=== PATIENT | male | born 1990 | race Caucasian/White ===

== ENCOUNTER 2018-10-10 13:27 | Emergency (ER) | payer SELFPAY ==
[2018-10-10] MEDS: ONDANSETRON (ODT) 4 MG TAB ODT (14:05)
[2018-10-10] MEDS: ACETAMINOPHEN 325 MG TAB PO (14:05)
[2018-10-10] MEDS: IBUPROFEN 200 MG TAB PO (14:05)
== END 2018-10-10 15:00 | disposition home or self-care (01) ==
LOC: FTE 13:27
DX: S01.81XA Laceration without foreign body of other part of head, initial encounter (principal); W22.8XXA Striking against or struck by other objects, initial encounter; Y92.810 Car as the place of occurrence of the external cause
CPT/HCPCS: 12013; 99283-25

== ENCOUNTER 2018-10-17 09:44 | Emergency (ER) | payer SELFPAY | END 2018-10-17 10:47 | disposition home or self-care (01) | LOC: FTE 09:44 | DX: Z48.02 Encounter for removal of sutures (principal) | CPT/HCPCS: 99281 ==